=== PATIENT | female | born 1980 | race African-American/Black ===

== ENCOUNTER 2017-04-29 16:44 | Emergency (ER) | payer MEDICAID ==
[~2017-04-29] VITALS: Ht 162.6 cm; Wt 90.7 kg
[~2017-04-29 16:44] MED LIST: ACETAMINOPHEN325 M1; ALBUTEROL INH; ALBUTEROL INHAL17 GM IH; ATIVAN0.5 MG PO; ATIVAN1 MG; AZITHROMYCIN 2250 MG PO; BACTRIM DS TAB1 EACH PO; BUTALB-APAP-CA1 EACH; CEFTIN 250 MG250 MG PO; CIPROFLOXACIN500 M1 PO; FLEXERIL PO; HYDROCODONE-APA1 TA1 PO; IBUPROFEN 400400 M1 PO; IBUPROFEN 800800 M1 PO; LORAZEPAM PO; NOHOMEMEDICATIONS; NORCO 5-325 TA1 EACH PO; PEPCID20 MG PO; PREDNISONE50 MG PO; PYRIDIUM200 MG PO; TOPAMAX200 MG; ZOFRAN ODT4 MG PO
[2017-04-29] MEDS ORDERED: ZANTAC 150MG T150 MG PO (16:57)
[2017-04-29] MEDS ORDERED: OMEPRAZOLE40 MG PO (16:57)
[2017-04-29] MEDS ORDERED: METFORMIN HCL500 MG PO (16:58)
[2017-04-29] MEDS ORDERED: CORLANOR5 MG PO (16:58)
[2017-04-29] MEDS ORDERED: LOPRESSOR50 PO (16:58)
[2017-04-29] MEDS ORDERED: ZOLOFT50 MG PO (16:59)
[2017-04-29] MEDS ORDERED: VALIUM5 MG PO (16:59)
[2017-04-29] MEDS ORDERED: CLONAZEPAM 0.50.5 M1 PO (17:00)
[2017-04-29] MEDS ORDERED: DIPHENHIST50 MG PO (17:00)
[2017-04-29] MEDS ORDERED: NORCO 10-325 T1 EACH PO (17:01)
[2017-04-29] MEDS ORDERED: NEURONTIN 300300 M1 PO (17:01)
[2017-04-29] MEDS ORDERED: PHENERGAN 25 MG25 M1 PO (17:02)
[2017-04-29] MEDS ORDERED: TOPAMAX 100 MG100 MG PO (17:02)
[2017-04-29 17:41] LABS: HEMATOCRIT 33.5 % (37.0-47.0); HEMOGLOBIN 11.1 gm/dL (12.0-15.0); MCH 27.8 pg (26.0-34.0); MCHC 33.1 g/dL (28.0-37.0); MCV 83.9 fL (80.0-100.0); MPV 7.9 fl. (7.2-11.1); NUCLEATED RBCS 0 /100WBC; PLATELET COUNT* 252 thou/uL (150-400); RDW-CV 20.4 % (10.5-14.5); WBC 25.5 thou/uL (4.0-11.0)
[2017-04-29 17:49] LABS: ANION GAP 9 mmol/L (7-16); BUN 19 mg/dL (7-18); CALCIUM 8.3 mg/dL (8.5-10.1); CHLORIDE 105 mmol/L (98-107); CO2 24 mmol/L (21-32); CREATININE 0.9 mg/dL (0.6-1.3); GLUCOSE 149 mg/dL (70-99); POTASSIUM 3.8 mmol/L (3.5-5.1); SODIUM 138 mmol/L (136-145)
[2017-04-29 17:58] LABS: ABSOLUTE EOSINOPHILS 0.3 thou/uL (0.0-0.7); ABSOLUTE MONOCYTES 0.8 thou/uL (0.0-1.2); ABSOLUTE NEUTROPHILS 23.5 thou/uL (1.6-8.1); ANISOCYTOSIS 1+; HYPOCHROMASIA 1+; MICROCYTES 1+; PLATELET ESTIMATE ADEQUATE
[2017-04-29 18:00] LABS: ALBUMIN 3.1 g/dL (3.4-5.0); ALKALINE PHOSPHATASE 59 U/L (46-116); NT-PRO BRAIN NAT PEPTIDE 174 pg/mL (<300); SGOT 11 U/L (15-37); SGPT 27 U/L (30-65); TOTAL BILIRUBIN 0.2 mg/dL (<0.1-1.0); TOTAL PROTEIN 6.3 g/dL (6.4-8.2); TROPONIN-I LEVEL <0.06 ng/mL (<0.06)
[2017-04-29 18:41] LABS: URINE BILIRUBIN NEGATIVE (Negative); URINE BLOOD 2+ (Negative); URINE CLARITY CLEAR; URINE COLOR YELLOW; URINE GLUCOSE-RANDOM NEGATIVE (Negative); URINE KETONES NEGATIVE (Negative); URINE LEUKOCYTES-REFLEX NEGATIVE (Negative); URINE NITRITE-REFLEX NEGATIVE (Negative); URINE PROTEIN NEGATIVE (Negative); URINE UROBILINOGEN 0.2 E.U./dl (0.2-1.0)
[2017-04-29 19:00] LABS: BACTERIA-REFLEX None Seen /HPF (None Seen); CASTS None Seen /LPF (None Seen); CRYSTALS None Seen /LPF (None Seen); SQUAMOUS >10 Many /LPF (0-3); URINE RBC 3-10 Few /HPF (0-2); URINE WBC-REFLEX None Seen /HPF (0-5)
[2017-04-29] MEDS ORDERED: PREDNISONE 20 M20 MG PO (20:43)
[2017-04-29] MEDS ORDERED: LEVAQUIN 750 M750 MG PO (20:43)
[2017-04-29 21:24] VITALS: BP 154/92
--- NOTE | 2017-04-30 10:24 | EKG ---
[place] [address] ELECTROCARDIOGRAM REPORT Name: JEANNETTE TOMPKINS Room: [facility]#: [id number] Admission: 04/29/17 Attend Phys: Discharge: 04/29/17 Date of : 76 Report #: [id number] THIS REPORT FOR: //name// [facility] ED Test Date: 2017-04-29 Test Time: 16:50:26 Pat Name: JEANNETTE ÁLVAREZ Department: Room: Gender: F Permit Agent: SAFIA : 1980 Requested By: Estella Marquez Order Number: [id number] John MD: Christiano Stevens Measurements Intervals [place] Rate: 97 P: 30 ME: 139 QRS: 44 QRSD: 87 T: 13 QT: 335 QTc: 426 Interpretive Statements Sinus rhythm Borderline T abnormalities, inferior leads Compared to ECG 10/03/2009 19:35:48 T-wave abnormality now present Electronically Signed On 04-30-2017 10:24:22 [employer] by Christiano Stevens [email or web address] <ELECTRONICALLY SIGNED> By: Christiano Stevens MD, [facility] 04/30/17 1024 D: [id number] Christiano Stevens MD, FACC /EPI
[2017-04-30] MEDS ORDERED: NYSTATIN100000 UNI PO (19:53)
== END 2017-04-29 21:31 | disposition home or self-care (01) ==
LOC: M.ERS 16:44
PROVIDERS: Physician Assistant
DX: R06.02 Shortness of breath (principal); R07.9 Chest pain, unspecified; D72.829 Elevated white blood cell count, unspecified; Z98.890 Other specified postprocedural states; Z85.09 Personal history of malignant neoplasm of other digestive organs; Z88.8 Allergy status to other drugs, medicaments and biological substances; Z88.0 Allergy status to penicillin

== ENCOUNTER 2017-04-30 18:49 | Emergency (ER) | payer MEDICAID ==
[~2017-04-30] VITALS: Ht 162.6 cm; Wt 90.7 kg
[~2017-04-30 18:49] MED LIST changes: +CLONAZEPAM 0.50.5 M1 PO; +CORLANOR5 MG PO; +DIPHENHIST50 MG PO; +LEVAQUIN 750 M750 MG PO; +LOPRESSOR50 PO; +METFORMIN HCL500 MG PO; +NEURONTIN 300300 M1 PO; +NORCO 10-325 T1 EACH PO; +OMEPRAZOLE40 MG PO; +PHENERGAN 25 MG25 M1 PO; +PREDNISONE 20 M20 MG PO; +TOPAMAX 100 MG100 MG PO; +VALIUM5 MG PO; +ZANTAC 150MG T150 MG PO; +ZOLOFT50 MG PO
[2017-04-30 19:20] LABS: HEMATOCRIT 33.7 % (37.0-47.0); HEMOGLOBIN 11.1 gm/dL (12.0-15.0); MCH 28.3 pg (26.0-34.0); MCV 85.5 fL (80.0-100.0); MPV 7.8 fl. (7.2-11.1); NUCLEATED RBCS 0 /100WBC; PLATELET COUNT* 230 thou/uL (150-400); RBC 3.93 mil/uL (4.20-5.00); RDW-CV 20.5 % (10.5-14.5); WBC 20.2 thou/uL (4.0-11.0)
[2017-04-30 19:31] LABS: ANION GAP 9 mmol/L (7-16); BUN 19 mg/dL (7-18); CALCIUM 7.8 mg/dL (8.5-10.1); CHLORIDE 106 mmol/L (98-107); CO2 27 mmol/L (21-32); CREATININE 0.8 mg/dL (0.6-1.3); GLUCOSE 128 mg/dL (70-99); POTASSIUM 3.2 mmol/L (3.5-5.1); SODIUM 142 mmol/L (136-145)
[2017-04-30 19:35] LABS: APTT 23.8 Seconds (25.0-31.3); PROTIME 9.4 Seconds (9.20-11.50)
[2017-04-30 19:50] LABS: ALBUMIN 2.9 g/dL (3.4-5.0); ALKALINE PHOSPHATASE 58 U/L (46-116); CK-MB MASS < 0.5 ng/mL (<0.5-3.6); LIPASE 113 U/L (73-393); MAGNESIUM 2.1 mg/dL (1.8-2.4); NT-PRO BRAIN NAT PEPTIDE 170 pg/mL (<300); SGOT 18 U/L (15-37); SGPT 32 U/L (30-65); TOTAL BILIRUBIN 0.1 mg/dL (<0.1-1.0); TOTAL PROTEIN 6.1 g/dL (6.4-8.2); TROPONIN-I LEVEL <0.06 ng/mL (<0.06)
[2017-04-30] MEDS ORDERED: NYSTATIN100000 UNI PO (19:53)
[2017-04-30 19:54] LABS: ABSOLUTE EOSINOPHILS 0.4 thou/uL (0.0-0.7); ABSOLUTE MONOCYTES 0.6 thou/uL (0.0-1.2); ABSOLUTE NEUTROPHILS 16.2 thou/uL (1.6-8.1)
[2017-04-30 19:55] LABS: ANISOCYTOSIS 1+; MICROCYTES 1+; PLATELET ESTIMATE ADEQUATE
[2017-04-30 20:05] VITALS: BP 119/82
--- NOTE | 2017-05-01 12:00 | EKG ---
[place] [address] ELECTROCARDIOGRAM REPORT Name: JEANNETTE TOMPKINS Room: [facility]#: [id number] Admission: 04/30/17 Attend Phys: Discharge: 04/30/17 Date of : 76 Report #: [id number] THIS REPORT FOR: //name// [facility] ED Test Date: 2017-04-30 Test Time: 18:54:39 Pat Name: JEANNETTE ÁLVAREZ Department: Room: Gender: F Program Writer: 99 : 1980 Requested By: Gordon Villavicencio Order Number: [id number] MD: Rom Maldonado Measurements Intervals [place] Rate: 109 P: 32 [place]: 142 QRS: 30 QRSD: 84 T: -16 QT: 315 QTc: 425 Interpretive Statements Sinus tachycardia Probable left atrial enlargement Borderline T abnormalities, diffuse leads Baseline wander in lead(s) III,aVF,V4 Compared to ECG 04/29/2017 16:50:26 Sinus rhythm no longer present T-wave abnormality still present Electronically Signed On 05-01-2017 12:00:19 RETAIL ANALYST by Rom Maldonado [email or web address] <ELECTRONICALLY SIGNED> By: Rom Maldonado MD, FACC 05/01/17 1200 1854 1854 Rom Maldonado MD, FAC /EPI
== END 2017-04-30 20:05 | disposition home or self-care (01) ==
LOC: M.ERS 18:49
PROVIDERS: Family Medicine
DX: B37.9 Candidiasis, unspecified (principal); Z98.890 Other specified postprocedural states; Z85.00 Personal history of malignant neoplasm of unspecified digestive organ; Z88.8 Allergy status to other drugs, medicaments and biological substances; Z88.0 Allergy status to penicillin